=== PATIENT | male | born 1950 | race Hispanic/Latino ===

== ENCOUNTER → 2018-08-01 | Day surgery (SDC) | payer OTHER ==
[~2018-08-01] VITALS: Ht 170.2 cm; Wt 102.1 kg
--- NOTE | 2018-08-01 10:35 | Operative Report ---
Operative/Inv Procedure Report Surgery Date: 08/01/18 Name of Procedure: Right shoulder arthroscopy, subacromial decompression,extensive debridement, superior capsular reconstruction Pre-Operative Diagnosis: Right shoulder retracted rotator cuff tear Post-Operative Diagnosis: Right shoulder irreparable rotator cuff tear Estimated Blood Loss: scant Surgeon/Hooker Laster: Alisha TALBOT,JOVANNI Melton Anesthesia: laryngeal mask airway, block Complications: None Condition: Stable to PACU Operative Indication: This is a 68-year-old male with long-standing right shoulder pain. MRI showed a large retracted tear of the rotator cuff. Risks and benefits of the procedure were discussed with the patient at length. Risks include but are not limited to nerve damage, muscle damage, infection, blood loss, blood clots, pulmonary embolus, and even . The patient agreed to the above risks and elected to proceed with surgery. Operative/Procedure Note Note: The patient was taken to the operating room and placed in the lateral decubitus position with the operative side up after anesthesia was induced. The upper extremity was prepped and draped in the normal sterile fashion. A timeout was performed prior to incision. The site marking was visualized prior to incision. IV antibiotics were given prior to incision. After the upper extremity was prepped and draped a spinal needle was used to insufflate the shoulder joint with saline. An 11 blade was used to incise the skin for the posterior portal placement. The cannula was then placed. The camera was inserted. An anterior portal was established just proximal and lateral to the coracoid with a spinal needle and an 11 blade. The diagnostic arthroscopy was then performed which showed the above findings. A shaver was used to debride the biceps tendon stump. The superior and posterior labrum were also debrided with the shaver. The subscapularis insertion was debrided with the shaver. Next the subacromial space was entered through the posterior portal. A lateral portal was established with a spinal needle and an 11 blade. A blunt probe was inserted through the lateral portal. Next the shaver was inserted and a subacromial bursectomy was performed. There was extensive bursal tissue that needed to be taken down. Any bleeding vessels were identified and cauterized. The shaver was used to debride any bursal tissue on the undersurface of the acromion and surrounding the humeral head. The coracoacromial ligament was taken down with a wand. Care was taken to protect the rotator cuff tissue and only take bursal tissue. A wand was then used to further take down the soft tissue on the undersurface of the acromion. A bur was then inserted and the acromioplasty was then begun starting at the anterolateral edge of the acromion. This was extended down to the level of the acromioclavicular joint. This was then tapered further posteriorly. Extensive releases of the rotator cuff were then performed in order to attempt a rotator cuff repair. A #2 orthotic cord suture was placed through the leading edge of the supraspinatus tendon. A [place] was used to release adhesions deep to the supraspinatus. A wand was used to release the fibrofatty bursa superior to the supraspinatus. The wand was used to perform an anterior interval slide in situ with a wand. Next a small stab incision was made at the anterolateral edge of the acromion. A scissor was then used to perform a posterior interval slide. A suture was placed through the leading edge of the infraspinatus. While placed under traction the posterior interval slide was performed taking care not to extend into the fat to protect the suprascapular nerve. Despite extensive releases the supraspinatus was unable to be reduced to the rotator cuff footprint. At this point the decision was made to proceed with a superior capsular reconstruction. An 8 mm PassPort cannula was placed through the lateral portal site. A 6 mm PassPort cannula was placed through the anterior portal. An accessory portal was made just off of the lateral border the acromion with a spinal needle and an 11 blade. An 8 mm PassPort cannula was placed through this. The bur was used to prepare the rotator cuff footprint back to a healthy bed of bleeding bone for later rotator cuff repair. Any bursal adhesions superior to the rotator cuff were taken jocy with a shaver. A wand was also used to clear off the superior glenoid. A bur was then used to decorticate the glenoid bone. Three 2.8 mm Q fix anchors were then placed on the superior glenoid. One was placed through the anterior portal. One was placed through Nevasier's portal. A third was placed through a stab incision just posterior to the acromion. A tap was used and two 5.5 mm helicoil anchors were placed just lateral to the articular surface in the rotator cuff footprint. The distance between the anchors were then measured. On the back table the superior capsular allograft was measured and cut. A hole was punched in the corresponding anchor sites. The passport cannula was then split in line. The sutures were then brought out through the lateral portal. They were kept isolated in order to prevent crisscrossing. The sutures were then passed outside of the shoulder. An expressew needle was used to pass the 2 central sutures from the medial anchor through the leading edge of the graft. A mulberry knot was tied. The graft was then passed while tension was placed on the medial sutures. Once the graft was reduced it was then fixed medially linking the 2 anterior and posterior anchors. The 2 lateral anchors were then length as well. The remaining sutures laterally were crisscrossed over the top and fixed with 2 multi-fix anchors for lateral row fixation. A #2 suture was then used to tie the posterior aspect of the graft as well as the infraspinatus together. A 1/8 inch Hemovac drain was placed through the posterior portal. All instruments were removed and the shoulder was copiously irrigated. The portal sites were closed with 3-0 nylon suture in a simple interrupted fashion. A dry sterile dressing was placed. A sling was applied. The patient was transferred to PACU in stable condition. Please note there was significant complexity requiring over 3 hours to complete this procedure, requiring multiple releases as well as multiple points of fixation in order to secure the allograft. Findings: Retracted and scarred irreparable tear of the supraspinatus. Partial undersurface tearing of the infraspinatus. Partial insertional tear of the subscapularis. Tear of the biceps tendon. Degenerative tearing of the anterior and posterior labrum. Glenohumeral articular cartilage intact. No loose bodies noted. Extensive subacromial bursitis present. Subacromial hook present.
== END ==
LOC: STS 02:14
DX: M75.101 Unspecified rotator cuff tear or rupture of right shoulder, not specified as traumatic (principal); M75.51 Bursitis of right shoulder; E11.9 Type 2 diabetes mellitus without complications; Z79.84 Long term (current) use of oral hypoglycemic drugs; I10 Essential (primary) hypertension; G47.33 Obstructive sleep apnea (adult) (pediatric)
CPT/HCPCS: J0131; J0171; J0690; J2250; Q4125